=== PATIENT | female | born 1995 | race Caucasian/White ===

== ENCOUNTER → 2019-06-04 08:14 | Outpatient (CLI) | payer BC, SELFPAY ==
[2019-06-04 10:25] LABS: Internal QC Validated? YES +Cl - CLEAR BKGD; Pregnancy, Urine Negative Negative
== END ==
PROVIDERS: Referring Provider Dermatology; Visit Provider Dermatology
DX: L70.0 Acne vulgaris (principal); Z79.899 Other long term (current) drug therapy
CPT/HCPCS: 81025

== ENCOUNTER → 2019-08-01 09:13 | Outpatient (CLI) | payer BC, SELFPAY ==
[2019-08-01 10:24] LABS: T4 Free Direct 1.12 ng/dL (0.76-1.46); Thyroid Stim Hormone (TSH) 3.62 uIU/mL (0.358-3.74)
[2019-08-02 17:22] LABS: Anti-Thyroglobulin AB < 1.0 IU/mL (0.0-0.9); Thyroglobulin, Serum Qt. 7.8 ng/mL (1.5-38.5); Thyroid Peroxidase AB 20 IU/mL (0-34)
== END ==
PROVIDERS: PCP Family Medicine; Referring Provider Family Medicine; Visit Provider Family Medicine
DX: E01.0 Iodine-deficiency related diffuse (endemic) goiter (principal)
CPT/HCPCS: 36415; 84432; 84439; 84443; 86376; 86800

== ENCOUNTER → 2019-08-15 07:48 | Outpatient (CLI) | payer BC, SELFPAY ==
--- NOTE | 2019-08-15 07:58 | US_ITS ---
STUDY: THYROID ULTRASOUND REASON FOR EXAM: Female, 23 years old. Thyromegaly felt by doctor TECHNIQUE: Ultrasound evaluation of the thyroid was performed with real-time and static kelley-scale imaging. COMPARISON: None. FINDINGS: RIGHT LOBE: The right lobe of the thyroid gland is mildly enlarged and measures 5.2 cm x 1.6 cm x 1.8 cm. There is a homogeneous echotexture. There is a 9 mm x 7 mm x 6 mm hypoechoic solid nodule in the midportion of the right lobe. LEFT LOBE: The left lobe of the thyroid gland is slightly enlarged and measures 5 cm x 1.8 cm x 1.5 cm. There is a homogeneous echotexture. There are no demonstrated solid, cystic or complex lesions. ISTHMUS: The isthmus measures 3.0 mm. The regional lymph nodes are normal. US/Thyroid IMPRESSION: Mild enlargement of the thyroid gland. 9 mm x 7 mm x 6 mm hypoechoic solid nodule in the midpole of the right lobe of the thyroid. Electronically Signed: Blair Ratliff, at 8:28 EDT , Service support ,
== END ==
PROVIDERS: PCP Family Medicine; Referring Provider Family Medicine; Visit Provider Family Medicine
DX: E01.0 Iodine-deficiency related diffuse (endemic) goiter (principal)
CPT/HCPCS: 76536

== ENCOUNTER → 2020-02-12 14:51 | Outpatient (CLI) | payer BC, SELFPAY ==
--- NOTE | 2020-02-12 14:55 | US_ITS ---
STUDY: THYROID ULTRASOUND REASON FOR EXAM: Female, 24 years old. NODULE TECHNIQUE: Ultrasound evaluation of the thyroid was performed with real-time and static kelley-scale imaging. COMPARISON: Comparison is made with prior examination dated 08/15/2019. FINDINGS: RIGHT LOBE: The right lobe of the thyroid gland is mildly enlarged and measures 5.1 cm x 1.5 cm x 1.7 cm. There is a homogeneous echotexture. There is a stable 9 mm x 7 mm x 6 mm solid hypoechoic nodule in the midportion of the right lobe. There is evidence of intranodular vascularity. LEFT LOBE: The left lobe of the thyroid gland is slightly enlarged and measures 5 cm x 1.8 cm x 1.5 cm. There is a homogeneous echotexture. There is a 4 mm x 3 mm x 2 mm cystic nodule in the lower pole. ISTHMUS: The isthmus measures 2.0 mm. The regional lymph nodes are normal. US/Thyroid IMPRESSION: Stable subcentimeters nodule in the right lobe of the thyroid. 4 mm x 3 mm x 2 mm cyst in the lower pole of the left lobe of the thyroid. Electronically Signed: Blair Ratliff, at 15:19 EST , Service support ,
== END ==
PROVIDERS: PCP Family Medicine; Referring Provider Family Medicine; Visit Provider Family Medicine
DX: E04.1 Nontoxic single thyroid nodule (principal)
CPT/HCPCS: 76536

== ENCOUNTER 2020-03-22 00:59 | Emergency (ER) | payer BC, SELFPAY ==
[2020-03-22 00:59] VITALS: BP 136/87; PULSE 83; RESP 19; TEMP 37.1; O2SAT 98; BMI 27.6
--- NOTE | 2020-03-22 01:10 | CT_ITS ---
STUDY: CT ABDOMEN AND PELVIS WITHOUT CONTRAST REASON FOR EXAM: Female, 24 years old. RT FLANK PAIN,URINARY RETENTION,PREG TEST WAS NEGATIVE -- FAMILY HX OF KIDNEY STONES RADIATION DOSAGE (If Supplied By Facility): CTDIvol = ( 7.79 ) mGy, DLP = ( 383.56 ) mGycm TECHNIQUE: Transaxial images were obtained from the dome of the diaphragm to the symphysis pubis without oral contrast, and without intravenous contrast. Sagittal and coronal images were reconstructed. Individualized dose optimization techniques were used for this CT. COMPARISON: None. FINDINGS: The visualized lung bases are unremarkable. The visualized portions of the heart are within normal limits. Normal liver. Normal gallbladder and extrahepatic biliary system. Normal spleen. Normal pancreas. Normal bilateral adrenal glands. There is mild RIGHT perinephric induration which could indicate pyelonephritis. Normal left kidney. There are NO kidney stones or ureteral stones. There is NO hydronephrosis. Normal visualized stomach. Normal small intestine. Normal colon. The appendix is visualized and appears normal. Normal abdominal aorta. Normal inferior vena cava. Normal retroperitoneum. Normal urinary bladder. Normal uterus and ovaries. There is NO ascites or free air, abscess or adenopathy. Normal abdominal wall. Normal osseous structures. CT/Abdomen/Pelvis without Cont IMPRESSION: There is mild RIGHT perinephric induration which could indicate pyelonephritis. There are NO kidney stones or ureteral stones. There is NO hydronephrosis. The appendix is visualized and appears normal. Normal uterus and ovaries. There is NO ascites or free air, abscess or adenopathy. Electronically Signed: Ignacio Hughes MD at 3:07 EST , Service support ,
--- NOTE | 2020-03-22 01:13 | ED.DCSUM_ITS ---
- ER Visit Summary Date of Service: 03/22/20 Chief Complaint: Right flank pain History of Present Illness: The patient is a 24 F presenting with right flank pain. Patient states this started today. Pain is in her right lower back and radiates to her right lower quadrant. She has associated nausea with no vomiting. She has dysuria and urinary frequency. She denies fever. Denies hematuria. Denies possibility of . Physical Examination: Vitals are stable. Patient is afebrile. Alert no acute distress. HEENT exam is unremarkable. Neck is supple. Lungs are clear and equal bilaterally. Heart is regular rate and rhythm. Abdomen is soft mild right lower quadrant tenderness with no guarding or rebound Back: Right CVA tenderness Extremities are unremarkable. Skin is warm and dry. Remainder of exam is unremarkable. Emergency Department Course and Treatment: Patient was given morphine, Zofran IV. CBC, chemistries unremarkable. hCG negative. Urinalysis shows 0-5 white blood cells, 25 red blood cells, 10-25 epithelial cells. Urine culture was sent. Patient continues to have pain and was given Toradol IV. CT abdomen/pelvis shows there is mild RIGHT perinephric induration which could indicate pyelonephritis. There are NO kidney stones or ureteral stones. There is NO hydronephrosis. The appendix is visualized and appears normal. Normal uterus and ovaries. There is NO ascites or free air, abscess or adenopathy. On reevaluation, patient is feeling much improved. She is given prescriptions for Bactrim and Zofran. Advised to follow-up with her primary care physician. Advised return to ED for worsening complaints. Disposition: Discharge home Impression: Pyelonephritis This note was generated with [employer] dictation software. It may contain incorrect words, spelling, and punctuation that were not noted in review of the chart prior to signing ED Disposition - Plan for ED Patient: Instructions: ED Pyelonephritis, Female (Adult) Prescriptions: Smz/Tmp Ds [Bactrim Ds] 1 tab PO BID #14 tab Prescription Printed Ondansetron [Zofran Odt] 4 mg PO Q8H PRN PRN #10 tab PRN Reason: Nausea Prescription Printed Referrals: Papo Garcia MD [Primary Care Provider] -
[2020-03-22] MEDS: 0.9% Normal Saline 1,000 ML 1000 ML IV (01:19)
[2020-03-22] MEDS: Morphine 4 MG/ML Syringe IV (01:20)
[2020-03-22] MEDS: Ondansetron 4 MG/2 ML Vial IV (01:20)
[2020-03-22 01:31] LABS: Absolute Lymphocyte Count 2.77 X10^3/uL (0.83-4.51); Absolute Neutrophil Count 5.2 X10^3/uL (2.0-7.7); Basophil# 0.04 X10^3/uL; Basophil% 0.5 % (0-1); Eosinophil# 0.11 X10^3/uL; Eosinophils% 1.3 % (0-5); Hematocrit 43.9 % (37-47); Lymphocyte # 2.77 X10^3/ul (4.0); Lymphocyte % 31.5 % (19-41); Mean Corp Hgb Conc 31.9 g/dL (32-36); Mean Corpuscular Volume 84.7 fL (81-99); Mean Platelet Vol. 10.8 fl (6.2-12.0); Monocyte# 0.63 X10^3/uL; Monocyte% 7.2 % (0-10); NRBC Flagged by Analyzer 0 % (0-5); Neutrophil # 5.21 X10^3/uL (2.7-7.7); Neutrophil % 59.2 % (47-70); Platelet Count 260 K/mm3 (150-450); RBC Distribution Width CV 11.9 % (11.6-14.6); RBC Distribution Width SD 36.5 fl (35.1-43.9); Red Blood Count 5.18 M/mm3 (4.2-5.4); White Blood Count 8.8 K/mm3 (4.4-11.0)
[2020-03-22 01:43] LABS: Internal QC Validated? YES +Cl - CLEAR BKGD; Pregnancy, Serum, hCG Quali. NEGATIVE Negative
[2020-03-22 01:52] LABS: ALB/GLOB Ratio 1.3 RATIO (0.9-2.4); AST(SGOT) 7 U/L (15-37); Alanine Aminotransfer ALT/SGPT 22 U/L (13-56); Albumin, Serum 3.9 g/dL (3.2-5.0); Alkaline Phosphatase 98 U/L (45-117); Anion Gap 6 (5-15); BUN 12 mg/dL (7-18); Calcium,Total 8.8 mg/dL (8.5-10.1); Chloride 111 mmol/L (98-107); Creatinine, Serum 1.09 mg/dL (0.55-1.02); EST Glomerular Filtration Rate 66 mL/min (>60); Est Glom Filt Rate - Afr Amer 80 mL/min (>60); Estimated Creatinine Clearance 78.06 ml/min; Globulin 2.9 g/dL (2.2-4.2); Glucose 115 mg/dL (74-106); Potassium 3.7 mmol/L (3.5-5.1); Protein, Total 6.8 g/dL (6.4-8.2); Sodium Level 143 mmol/L (136-145)
[2020-03-22] MEDS: Ketorolac 30 MG/ML Syringe IV (02:48)
[2020-03-22 03:03] LABS: Bacteria 0 SEEN /hpf (None Seen); Mucous, Urine 0 SEEN /hpf (<or=2+)
[2020-03-22 03:09] LABS: Color, Urine Yellow (Yellow); Glucose, Dipstick Normal (Normal); Ketone-Dipstick Negative (Negative); Leukocyte Esterase-Dipstick 25 /ul (Negative); Nitrite-Dipstick Negative (Negative); Occult Blood-Urine 250 /ul (Negative); Protein-Dipstick Negative (Negative); Urine Bilirubin Dipstick Negative (Negative); Urine Clarity Sl. Cloudy (Clear); Urine Urobilinogen Normal (Normal)
[2020-03-22 03:21] LABS: Red Blood Cells-Urine 25-50 SEEN /hpf (0-5); Squamous Epithelial Cells - UA 10-25 SEEN /hpf (5-10); White Blood Cells 0-5 SEEN /hpf (0-5)
--- NOTE | 2020-03-22 03:27 | ED.DEP ---
ED Disposition - Plan for ED Patient: Instructions: ED Pyelonephritis, Female (Adult) Prescriptions: Smz/Tmp Ds [Bactrim Ds] 1 tab PO BID #14 tab Prescription Printed Ondansetron [Zofran Odt] 4 mg PO Q8H PRN PRN #10 tab PRN Reason: Nausea Prescription Printed Referrals: Papo Garcia MD [Primary Care Provider] -
[2020-03-22] MEDS: Smz/Tmp Ds Tablet 1 TABLET PO (03:41)
[2020-03-22 03:55] VITALS: BP 108/78; PULSE 78; RESP 16; O2SAT 100
== END 2020-03-22 03:58 | disposition home or self-care (01) ==
LOC: ED 02:07
PROVIDERS: Emergency Provider Emergency Medicine; PCP Family Medicine
DX: N12 Tubulo-interstitial nephritis, not specified as acute or chronic (principal); Z87.442 Personal history of urinary calculi
CPT/HCPCS: 74176; 80053; 81001; 84703; 85025; 87086; 87088; 96361; 96374; 96375; 99284; J7030; A4216; J2405

== ENCOUNTER → 2020-04-16 12:05 | Outpatient (CLI) | payer BC, SELFPAY ==
[2020-03-22 00:59] VITALS: BMI 27.6
[2020-04-16 14:48] LABS: Absolute Lymphocyte Count 1.94 X10^3/uL (0.83-4.51); Absolute Neutrophil Count 3.6 X10^3/uL (2.0-7.7); Basophil# 0.06 X10^3/uL; Eosinophils% 1.6 % (0-5); Hematocrit 44.1 % (37-47); Hemoglobin 14.1 g/dL (12.0-15.0); Lymphocyte # 1.94 X10^3/ul (4.0); Lymphocyte % 31.4 % (19-41); Mean Corpuscular Hgb 27.8 pg (27.0-32.0); Mean Corpuscular Volume 86.8 fL (81-99); Mean Platelet Vol. 11.9 fl (6.2-12.0); Monocyte# 0.43 X10^3/uL; NRBC Flagged by Analyzer 0 % (0-5); Neutrophil # 3.62 X10^3/uL (2.7-7.7); Neutrophil % 58.7 % (47-70); Platelet Count 223 K/mm3 (150-450); RBC Distribution Width CV 11.9 % (11.6-14.6); RBC Distribution Width SD 38.2 fl (35.1-43.9); Red Blood Count 5.08 M/mm3 (4.2-5.4); White Blood Count 6.2 K/mm3 (4.4-11.0)
[2020-04-16 15:06] LABS: International Normalized Ratio 1.1; Partial Thromboplast Time 25.2 Seconds (24.1-36.2); Prothrombin Time (Protime)PT. 13.6 SECONDS (11.7-14.9)
== END ==
PROVIDERS: PCP Family Medicine; Referring Provider Family Medicine; Visit Provider Family Medicine
DX: T14.8XXA Other injury of unspecified body region, initial encounter (principal)
CPT/HCPCS: 36415; 85025; 85610; 85730